=== PATIENT | male | born 1975 | race African-American/Black ===

== ENCOUNTER 2018-05-15 06:53 | Emergency (ER) | payer MEDICAID ==
[~2018-05-15] VITALS: Ht 185.4 cm; Wt 86.0 kg
[~2018-05-15 06:53] MED LIST: LOPHC2
[2018-05-15 07:55] LABS: BASOPHILS % 0.5 % (0.0-2.0); HEMATOCRIT. 41.4 % (42.0-52.0); HEMOGLOBIN. 13.8 g/dL (14.0-18.0); LYMPHOCYTES % 39.4 % (20.0-50.0); MEAN CORPUSCULAR HEMOGLOBIN 32.3 pg (28.0-32.0); MEAN CORPUSCULAR VOLUME 96.7 fL (80.0-94.0); MEAN PLATELET VOLUME 10.8 fl (7.4-10.4); MONOCYTES % 7.1 % (2.0-8.0); PLATELET 188 x1000/uL (130-400); RED BLOOD CELL COUNT 4.28 mill/uL (4.7-6.1); RED CELL DISTRIBUTION WIDTH 13.4 % (11.6-14.6)
[2018-05-15 07:59] LABS: CHLORIDE 105 mEq/L (98-107)
[2018-05-15 08:07] LABS: ETHANOL BLOOD 18 mg/dL
[2018-05-15 08:09] LABS: CLARITY URINE CLEAR (CLEAR); COLOR URINE YELLOW (YELLOW); KETONES URINE TRACE (NEGATIVE); LEUKOCYTE ESTERASE URINE NEGATIVE (NEGATIVE); NITRITE URINE NEGATIVE (NEGATIVE); OCCULT BLOOD URINE 1+ (NEGATIVE); PROTEIN URINE 1+ (NEGATIVE); SPECIFIC GRAVITY URINE 1.012 (1.005-1.030); UROBILINOGEN URINE 0.2 E.U./dL (0.2-1.0)
[2018-05-15 08:13] LABS: *BENZODIAZEPINES SCREEN URINE NEGATIVE (NEGATIVE)
[2018-05-15 08:14] LABS: *COCAINE SCREEN URINE NEGATIVE (NEGATIVE); METHADONE URINE SCREEN NEGATIVE (NEGATIVE); OPIATES URINE SCREEN NEGATIVE (NEGATIVE)
[2018-05-15 08:15] LABS: CANNABINOID URINE SCREEN PRESUMTIVE POSITIVE (NEGATIVE); PHENCYCLIDINE URINE SCREEN NEGATIVE (NEGATIVE)
[2018-05-15 08:31] LABS: *AMPHETAMINES SCREEN URINE NEGATIVE (NEGATIVE); *BARBITURATES SCREEN URINE NEGATIVE (NEGATIVE)
[2018-05-15] MEDS ORDERED: PHENYTOIN SODIUM 1,000 MG in SODIUM CHLORIDE 0.9% 100 ML IV NR (09:15)
[2018-05-15 11:15] VITALS: BP 161/94
== END 2018-05-15 11:56 | disposition home or self-care (01) ==
LOC: ER 06:53
DX: R56.9 Unspecified convulsions (principal); I10 Essential (primary) hypertension; I49.9 Cardiac arrhythmia, unspecified; F17.200 Nicotine dependence, unspecified, uncomplicated; F12.10 Cannabis abuse, uncomplicated
CPT/HCPCS: 36415; 70450; 71045; 80053; 80185; 80305; 81003; 82962; 85025; 96365; 96366; 99285; G0482; J1165; J7050

== ENCOUNTER 2020-03-12 12:42 | Emergency (ER) | payer MEDICAID ==
[~2020-03-12] VITALS: Ht 177.8 cm; Wt 82.0 kg
[2020-03-12] MEDS ORDERED: KETOROLAC 30MG/ML VIAL IV ONE (13:30)
[2020-03-12] MEDS ORDERED: PHENYTOIN SODIUM EXTENDED 100MG CAPSULE PO ONE (13:30)
[2020-03-12] MEDS ORDERED: PHENYTOIN SODIUM 500 MG in SODIUM CHLORIDE 0.9% 100 ML IV ONE (13:30)
[2020-03-12 14:14] LABS: CHLORIDE 104 mEq/L (98-107)
[2020-03-12 14:15] LABS: BASOPHILS % 0.7 % (0.0-2.0); EOSINOPHILS % 3.4 % (0.0-5.0); HEMATOCRIT. 43.5 % (42.0-52.0); HEMOGLOBIN. 14.4 g/dL (14.0-18.0); LYMPHOCYTES % 32.3 % (20.0-50.0); MEAN CORPUSCULAR HEMOGLOBIN 32.3 pg (28.0-32.0); MEAN CORPUSCULAR VOLUME 97.6 fL (80.0-94.0); MONOCYTES % 6.3 % (2.0-8.0); NEUTROPHILS % 57.3 % (40.0-76.0); PLATELET 171 x1000/uL (130-400); RED BLOOD CELL COUNT 4.46 mill/uL (4.7-6.1); RED CELL DISTRIBUTION WIDTH 13.6 % (11.6-14.6)
[2020-03-12 14:18] LABS: ETHANOL BLOOD < 10 mg/dL
[2020-03-12 15:49] VITALS: BP 148/74
== END 2020-03-12 15:51 | disposition home or self-care (01) ==
LOC: ER 12:42
DX: G40.909 Epilepsy, unspecified, not intractable, without status epilepticus (principal); I10 Essential (primary) hypertension; F12.10 Cannabis abuse, uncomplicated
CPT/HCPCS: 36415; 70450; 80053; 80185; 80320; 85025; 96374; 99284; J1165; J1885; J7050; G0480

== ENCOUNTER 2020-11-16 08:57 | Emergency (ER) | payer MEDICAID ==
[~2020-11-16] VITALS: Ht 172.7 cm; Wt 75.0 kg
[2020-11-16] MEDS ORDERED: SODIUM CHLORIDE 0.9% 1,000 ML IV ONE (09:30)
[2020-11-16 10:03] LABS: BASOPHILS % 1.1 % (0.0-2.0); EOSINOPHILS % 2.1 % (0.0-5.0); HEMATOCRIT. 41.3 % (42.0-52.0); HEMOGLOBIN. 13.6 g/dL (14.0-18.0); LYMPHOCYTES % 24.4 % (20.0-50.0); MEAN CORPUSCULAR HEMOGLOBIN 32.2 pg (28.0-32.0); MEAN CORPUSCULAR VOLUME 97.9 fL (80.0-94.0); MEAN PLATELET VOLUME 10.8 fl (7.4-10.4); NEUTROPHILS % 66.4 % (40.0-76.0); PLATELET 163 x1000/uL (130-400); RED BLOOD CELL COUNT 4.22 mill/uL (4.7-6.1)
[2020-11-16 10:07] LABS: CHLORIDE 104 mEq/L (98-107)
[2020-11-16 10:12] LABS: ETHANOL BLOOD < 10 mg/dL
[2020-11-16] MEDS ORDERED: PHENYTOIN SODIUM 500 MG in SODIUM CHLORIDE 0.9% 50 ML IV ONE (10:30)
[2020-11-16 12:00] VITALS: BP 190/106
[2020-11-16 12:50] LABS: CLARITY URINE CLEAR (CLEAR); COLOR URINE YELLOW (YELLOW); KETONES URINE 1+ (NEGATIVE); LEUKOCYTE ESTERASE URINE NEGATIVE (NEGATIVE); NITRITE URINE NEGATIVE (NEGATIVE); OCCULT BLOOD URINE 1+ (NEGATIVE); PH URINE 5.5 (4.5-8.0); PROTEIN URINE 3+ (NEGATIVE); UROBILINOGEN URINE 0.2 E.U./dL (0.2-1.0)
[2020-11-16 13:40] LABS: *AMPHETAMINES SCREEN URINE NEGATIVE (NEGATIVE); *BARBITURATES SCREEN URINE NEGATIVE (NEGATIVE); *BENZODIAZEPINES SCREEN URINE NEGATIVE (NEGATIVE); *COCAINE SCREEN URINE NEGATIVE (NEGATIVE); CANNABINOID URINE SCREEN PRESUMTIVE POSITIVE (NEGATIVE); METHADONE URINE SCREEN NEGATIVE (NEGATIVE); OPIATES URINE SCREEN NEGATIVE (NEGATIVE); PHENCYCLIDINE URINE SCREEN NEGATIVE (NEGATIVE)
== END 2020-11-16 12:50 | disposition home or self-care (01) ==
LOC: ER 08:57
DX: G40.909 Epilepsy, unspecified, not intractable, without status epilepticus (principal); S00.511A Abrasion of lip, initial encounter; X58.XXXA Exposure to other specified factors, initial encounter; Y93.89 Activity, other specified; R89.2 Abnormal level of other drugs, medicaments and biological substances in specimens from other organs, systems and tissues; F12.90 Cannabis use, unspecified, uncomplicated; Y92.89 Other specified places as the place of occurrence of the external cause
CPT/HCPCS: 36415; 70450; 71045; 80053; 80185; 80305; 80320; 81003; 84484; 85025; 93005; 96361; 96365; 99285; J1165; J7030; G0480

== ENCOUNTER 2021-02-20 13:26 | Emergency (ER) | payer MEDICAID ==
[~2021-02-20] VITALS: Ht 177.8 cm; Wt 90.0 kg
[2021-02-20] MEDS ORDERED: LEVETIRACETAM 500MG PREMIX 100 ML IV ONE (13:45)
[2021-02-20] MEDS ORDERED: SODIUM CHLORIDE 0.9% 1,000 ML IV ONE (13:45)
[2021-02-20 14:07] LABS: BASOPHILS % 1.2 % (0.0-2.0); EOSINOPHILS % 2.6 % (0.0-5.0); HEMATOCRIT. 41.8 % (42.0-52.0); HEMOGLOBIN. 13.6 g/dL (14.0-18.0); LYMPHOCYTES % 23.1 % (20.0-50.0); MEAN CORPUSCULAR HEMOGLOBIN 32.9 pg (28.0-32.0); MEAN CORPUSCULAR VOLUME 100.9 fL (80.0-94.0); MEAN PLATELET VOLUME 10.3 fl (7.4-10.4); MONOCYTES % 11.6 % (2.0-8.0); NEUTROPHILS % 61.5 % (40.0-76.0); PLATELET 184 x1000/uL (130-400); RED BLOOD CELL COUNT 4.14 mill/uL (4.7-6.1); RED CELL DISTRIBUTION WIDTH 14.9 % (11.6-14.6)
[2021-02-20 14:15] LABS: CHLORIDE 106 mEq/L (98-107)
[2021-02-20] MEDS ORDERED: KEPP500 MT (16:10)
[2021-02-20] MEDS ORDERED: METO-396 MT (16:14)
[2021-02-20 16:37] VITALS: BP 150/78
== END 2021-02-20 16:38 | disposition home or self-care (01) ==
LOC: ER 13:26
DX: G40.909 Epilepsy, unspecified, not intractable, without status epilepticus (principal); I10 Essential (primary) hypertension
CPT/HCPCS: 36415; 80053; 85025; 93005; 96365; 99284; J1953; J7030; Z7610

== ENCOUNTER 2021-06-14 13:47 | Emergency (ER) | payer MEDICAID ==
[~2021-06-14] VITALS: Ht 175.3 cm; Wt 77.5 kg
[~2021-06-14 13:47] MED LIST changes: +KEPP500 MT; +METO-396 MT
[2021-06-14] MEDS ORDERED: LEVETIRACETAM 1000MG PREMIX 100 ML IV ONE (15:00)
[2021-06-14] MEDS ORDERED: SODIUM CHLORIDE 0.9% 1,000 ML IV ONE (15:00)
[2021-06-14 16:21] LABS: CHLORIDE 105 mEq/L (98-107)
[2021-06-14 16:25] LABS: ETHANOL BLOOD 20 mg/dL
[2021-06-14 16:55] LABS: BASOPHILS % 0.9 % (0.0-2.0); EOSINOPHILS % 0.4 % (0.0-5.0); HEMOGLOBIN. 12.7 g/dL (14.0-18.0); LYMPHOCYTES % 15.1 % (20.0-50.0); MEAN CORPUSCULAR VOLUME 95.5 fL (80.0-94.0); MEAN PLATELET VOLUME 10.4 fl (7.4-10.4); MONOCYTES % 4.4 % (2.0-8.0); NEUTROPHILS % 79.2 % (40.0-76.0); PLATELET 176 x1000/uL (130-400); RED BLOOD CELL COUNT 3.98 mill/uL (4.7-6.1); RED CELL DISTRIBUTION WIDTH 14.3 % (11.6-14.6)
[2021-06-14] MEDS ORDERED: IBUPROFEN 600MG TABLET PO ONE (17:00)
[2021-06-14] MEDS ORDERED: PHENYTOIN SODIUM 1,000 MG in SODIUM CHLORIDE 0.9% 100 ML IV ONE (17:30)
[2021-06-14] MEDS ORDERED: METO25TA6 MT (18:07)
[2021-06-14] MEDS ORDERED: PHEN100C4 MT (18:07)
[2021-06-14] MEDS ORDERED: CLONIDINE 0.2MG TABLET PO ONE (18:15)
[2021-06-14 20:49] VITALS: BP 164/95
== END 2021-06-14 20:50 | disposition home or self-care (01) ==
LOC: ER 13:55
DX: R56.9 Unspecified convulsions (principal); I10 Essential (primary) hypertension; F10.129 Alcohol abuse with intoxication, unspecified; Y90.0 Blood alcohol level of less than 20 mg/100 ml; Z79.899 Other long term (current) drug therapy
CPT/HCPCS: 36415; 80053; 80185; 80320; 85025; 93005; 96365; 96366; 96367; 99285; J1165; J1953; J7050; G0480

== ENCOUNTER 2021-09-28 10:03 | Emergency (ER) | payer MEDICAID ==
[~2021-09-28] VITALS: Ht 170.2 cm; Wt 79.0 kg
[~2021-09-28 10:03] MED LIST changes: +METO25TA6 MT; +PHEN100C4 MT
[2021-09-28] MEDS ORDERED: ACETAMINOPHEN 325MG TABLET PO STA (11:11)
[2021-09-28] MEDS ORDERED: PHENYTOIN SODIUM EXTENDED 100MG CAPSULE PO ONE (11:45)
[2021-09-28] MEDS ORDERED: PHEN100C4 MT (12:03)
[2021-09-28 13:05] LABS: CHLORIDE 106 mEq/L (98-107)
[2021-09-28 13:32] VITALS: BP 175/99
== END 2021-09-28 13:34 | disposition home or self-care (01) ==
LOC: ER 10:03
DX: R56.9 Unspecified convulsions (principal); I10 Essential (primary) hypertension
CPT/HCPCS: 36415; 80053; 80185; 99283

== ENCOUNTER 2021-10-18 08:07 | Emergency (ER) | payer MEDICAID ==
[~2021-10-18] VITALS: Ht 170.2 cm; Wt 77.0 kg
[2021-10-18 10:27] LABS: BASOPHILS % 0.6 % (0.0-2.0); EOSINOPHILS % 0.2 % (0.0-5.0); HEMATOCRIT. 42.9 % (42.0-52.0); HEMOGLOBIN. 14.1 g/dL (14.0-18.0); LYMPHOCYTES % 8.7 % (20.0-50.0); MEAN CORPUSCULAR HEMOGLOBIN 31.9 pg (28.0-32.0); MEAN CORPUSCULAR VOLUME 96.8 fL (80.0-94.0); MEAN PLATELET VOLUME 10.5 fl (7.4-10.4); MONOCYTES % 4.3 % (2.0-8.0); NEUTROPHILS % 86.2 % (40.0-76.0); PLATELET 192 x1000/uL (130-400); RED BLOOD CELL COUNT 4.43 mill/uL (4.7-6.1); RED CELL DISTRIBUTION WIDTH 14.2 % (11.6-14.6)
[2021-10-18 10:33] LABS: CHLORIDE 103 mEq/L (98-107)
[2021-10-18 10:35] VITALS: BP 119/103
[2021-10-18 10:39] LABS: ETHANOL BLOOD < 10 mg/dL
[2021-10-18 10:52] LABS: CARBAMAZEPINE < 0.5 ug/mL (4-12); PHENOBARBITAL < 2.1 ug/mL (15.0-40.0); VALPROIC ACID < 3.0 ug/mL (50-100)
[2021-10-18] MEDS ORDERED: KEPP500 PO (10:55)
[2021-10-18] MEDS ORDERED: LEVETIRACETAM 500MG TABLET PO ONE (11:00)
== END 2021-10-18 11:23 | disposition home or self-care (01) ==
LOC: ER 08:12
DX: G40.909 Epilepsy, unspecified, not intractable, without status epilepticus (principal); I65.23 Occlusion and stenosis of bilateral carotid arteries; R41.0 Disorientation, unspecified; S02.832A Fracture of medial orbital wall, left side, initial encounter for closed fracture; I10 Essential (primary) hypertension; X58.XXXA Exposure to other specified factors, initial encounter; Y93.89 Activity, other specified; Y92.89 Other specified places as the place of occurrence of the external cause; S09.8XXA Other specified injuries of head, initial encounter; Y92.512 Supermarket, store or market as the place of occurrence of the external cause
CPT/HCPCS: 36415; 80053; 80156; 80165; 80184; 80185; 80320; 85025; 99284; G0480